=== PATIENT | female | born 1985 | race Caucasian/White ===

== ENCOUNTER 2022-05-08 05:28 | Observation (INO) ==
[2022-05-08] MEDS ORDERED: MoRPHine SULFATE 4 MG/ML 1 ML CARP\\VIAL IV PRN (06:02)
[2022-05-08] MEDS ORDERED: ONDANSETRON INJ 2 MG/ML 2 ML VIAL IV STA (06:02)
[2022-05-08] MEDS ORDERED: SODIUM CHLORIDE 0.9% 1000ML 1,000 ML IV SCH (06:15)
--- NOTE | 2022-05-08 06:29 | Emergency Department Note ---
History of Present Illness General Chief complaint: Back Injury/Pain Stated complaint: BACK AND STOMACH PAIN Time Seen by Provider: 05/08/22 05:51 History of Present Illness Maximum Pain Intensity: 8 This is a 37-year-old female presenting to the emergency department for evaluation of vague back and stomach pain off and on for the past few months. The patient states that her pain is often worse at night and will occasionally wake her from sleep. She is not able to identify aggravating or alleviating factors. The patient typically starts in her right side and will moved to her right side abdomen. She has not had fevers or chills. She is unsure if food improves or worsens the symptoms. She does not have a history of abdominal surgery. No fevers or chills. She denies chance of . She rates her discomfort tonight and 8/10, but it is somewhat improving as she sits here in the ER. She may have slightly injured her back few months ago, but this does not feel the same as that. She is not having any vaginal drainage, discharge, or bleeding. Home Medications Medication Instructions Recorded Confirmed Type Control Pills 1 tab PO DAILY #0 tab 03/02/16 History METFORMIN HCL (GLUCOPHAGE) 500 mg PO DAILY #0 tab 03/02/16 History Allergies Allergy/AdvReac Type Severity Reaction Status Date / Time No Known Allergies Allergy Unverified 03/02/16 10:45 Past Med/Surg History Medical History No chronic diseases present Surgical History No significant past surgical history Social History Smoking Status: Never smoker Preferred Language: Sinhala Feels Safe at Home: Yes Review of Systems A total of 10 systems reviewed and were otherwise negative Physical Exam Vital Signs Vital Signs - 24 hr 05/08/22 05:45 05/08/22 06:04 Temperature 36.8 C 36.8 C Temperature Source Temporal Artery Scan Oral Pulse Rate 72 Pulse Rate [Apical] 76 Pulse Rhythm [Apical] Regular Pulse Strength [Apical] Normal Respiratory Rate 20 18 Respiratory Effort / Characteristics Non-Labored Spontaneous Respiratory Depth Normal Respiratory Pattern Regular Blood Pressure 135/83 Blood Pressure [Right Arm] 147/89 H Blood Pressure Mean 100 Blood Pressure Mean [Right Arm] 108 Blood Pressure Position Sitting Blood Pressure Position [Right Arm] Lying Pulse Oximetry 99 99 Oxygen Delivery Method Room Air Room Air Sepsis Recent Fever Within 48 Hours No Sepsis New/Unexplained Change in Mental Status N/A Sepsis Action Taken by Nursing No Action Required VITALS: Vitals are noted on the nurse's note and reviewed by myself. Vital signs stable. GENERAL: Well-developed, well-nourished, white female, who is in no acute distress and resting comfortably. Patient is cooperative with the examination. HEAD: Normocephalic atraumatic. MOUTH: Mucous membranes moist. Tonsils are not enlarged. Pharynx without erythema, blood, or exudate. Uvula midline. Airway patent. NECK: Supple without nuchal rigidity. No lymphadenopathy. No thyromegaly. Cervical spine is nontender. HEART: Regular rate and rhythm without murmurs gallops or rubs. LUNGS: Clear to auscultation bilaterally without wheezes, rales or rhonchi. No retractions or accessory muscle use. BACK: No significant thoracic or lumbar tenderness. No rash. No CVA tenderness. ABDOMEN: Positive normal bowel sounds x 4. Soft, nontender, without masses or organomegaly. No guarding or rebound tenderness. MUSCULOSKELETAL: No muscle atrophy, erythema, or edema noted. Full range of motion in all extremities. Course Administered Medications Sodium Chloride (Nss 1000ml) 1,000 mls @ 999 mls/hr IV .Q1H1M CYNDI Stop: 05/08/22 07:15 Last Admin: 05/08/22 06:29 Dose: 999 mls/hr Documented by: [id number] Discontinued Medications Ondansetron HCl (Ondansetron Inj 2 Mg/Ml 2 Ml Vial) 4 mg IV NOW STA Stop: 05/08/22 06:03 Last Admin: 05/08/22 06:29 Dose: 4 mg Documented by: [id number] Medical Decision Making Differential Diagnosis Differential diagnosis: Etiologies such as biliary colic, cholecystitis, hepatitis, pancreatitis, cardiac disease, pancreatitis, gastritis, peptic ulcer disease, appendicitis, cystitis, diverticulitis, mesenteric ischemia, inflammatory bowel disease, ileus, bowel obstruction, testicular/adnexal torsion, aortic pathology, shingles, as well as others were considered Laboratory Data Result diagrams: 05/08/22 06:15 05/08/22 06:15 Lab Results 05/08/22 05/08/22 05/08/22 Range/Units 06:15 06:15 06:28 WBC 11.41 H (4.8-10.8) K/uL RBC 4.91 (4.2-5.4) M/uL Hgb 13.7 (12.0-16.0) g/dL Hct 40.8 (37-47) % MCV 83.1 (80-100) fL MCH 27.9 (25-34) pg MCHC 33.6 (32-36) g/dL RDW Std Deviation 41.2 (36.4-46.3) fL RDW Coeff of Hina 13.6 (11.5-14.5) % Plt Count 356 (130-400) K/uL MPV 9.6 (7.4-10.4) fL Immature Gran % (Auto) 0.6 % Neut % (Auto) 76.1 % Lymph % (Auto) 15.7 % [place] % (Auto) 6.4 % Eos % (Auto) 1.0 % Baso % (Auto) 0.2 % Neut # (Auto) 8.69 H (1.4-6.5) K/uL Lymph # (Auto) 1.79 (1.2-3.4) K/uL [place] # (Auto) 0.73 H (0.11-0.59) K/uL Eos # (Auto) 0.11 (0-0.5) K/uL Baso # (Auto) 0.02 (0-0.2) K/uL Immature Gran # (Auto) 0.07 H (0.00-0.02) K/uL Sodium 137 (136-145) mmol/L Potassium 4.0 (3.5-5.1) mmol/L Chloride 101 (98-107) mmol/L Carbon Dioxide 26 (21-32) mmol/L Anion Gap 10 (3-11) BUN 19 (6-23) mg/dl Creatinine 0.79 (0.6-1.2) mg/dl Est Cr Clr Drug Dosing 128.4 ml/min Est GFR ( Amer) 109.3 ml/min Est GFR (Non-Af Amer) 94.3 ml/min BUN/Creatinine Ratio 24.1 H (10-20) Glucose 132 H (70-99(Fasting)) mg/dl Calcium 9.2 (8.5-10.1) mg/dl POC Ur Test NEG (NEG) MDM Narrative Physical exam and history were performed. Nursing notes, EMR, and Medication List were personally reviewed. Patient appears to have had intermittent and colicky abdominal and back pain for the past few months. It is worsening in frequency and severity the past week and tonight it was enough to bring her to the ER. On examination the patient does not appear toxic. IV access was established and labs were obtained. She was hydrated with normal saline and given IV morphine and Zofran for comfort. Patient was prepped for CT scan with IV and oral contrast. She was sent to ultrasound for evaluation of the right upper quadrant. Patient remained in stable condition until the time of shift change. The case was discussed with my colleague, Lauren Eugene PA-C, who will assume care at this time. Please see Ms. Eugene's dictation for further patient course, plan, and disposition. The chart was completed utilizing [employer] Speech Voice Recognition Software. Grammatical errors, random word insertions, pronoun errors, and incomplete sentences are an occasional consequence of this system due to software limitations, ambient noise, and hardware issues. Any formal questions or concerns about the content, text, or information contained within the body of this dictation should be directly addressed to the provider for clarification. . Impression & Plan Right sided abdominal pain, Right-sided back pain Discharge Plan Visit Data Chief Complaint: Back Injury/Pain Stated Complaint: BACK AND STOMACH PAIN ED Provider: Abilio Borja ED Midlevel Provider: Jake Kincaid Discharge Problem: Right sided abdominal pain, Right-sided back pain Forms Stand Alone Forms: [facility] [employer] Prescriptions Prescriptions: No Action Control Pills tablet 1 tab PO DAILY Qty: 0 RF: 0 METFORMIN HCL (GLUCOPHAGE) 500 MG tablet 500 mg PO DAILY Qty: 0 RF: 0 Referrals Referrals: Allen Decker MD [Primary Care Provider] -
[2022-05-08 06:35] LABS: Basophils # (auto) 0.02 K/uL (0-0.2); Basophils % (auto) 0.2 %; Eosinophils # (auto) 0.11 K/uL (0-0.5); Hematocrit (blood only) 40.8 % (37-47); Hemoglobin 13.7 g/dL (12.0-16.0); Immature Granulocytes # (auto) 0.07 K/uL (0.00-0.02); Immature Granulocytes % (auto) 0.6 %; Lymphocytes # (auto) 1.79 K/uL (1.2-3.4); Lymphocytes % (auto) 15.7 %; Mean Corpuscular Hemoglobin 27.9 pg (25-34); Mean Corpuscular Hgb Conc 33.6 g/dL (32-36); Mean Corpuscular Volume 83.1 fL (80-100); Mean Platelet Volume 9.6 fL (7.4-10.4); Monocytes # (auto) 0.73 K/uL (0.11-0.59); Monocytes % (auto) 6.4 %; Neutrophils # (auto) 8.69 K/uL (1.4-6.5); Neutrophils % (auto) 76.1 %; Platelet Count 356 K/uL (130-400); RDW Coefficient of Variation 13.6 % (11.5-14.5); RDW Standard Deviation 41.2 fL (36.4-46.3); Red Blood Count 4.91 M/uL (4.2-5.4); White Blood Count 11.41 K/uL (4.8-10.8)
[2022-05-08 06:51] LABS: BUN Creatinine Ratio 24.1 (10-20); Calcium 9.2 mg/dl (8.5-10.1); Creatinine Clr Calc Pharmacy 128.4 ml/min; Est GFR (African American) 109.3 ml/min; Est GFR (Non-African American) 94.3 ml/min
--- NOTE | 2022-05-08 07:27 | Ultrasound Report ---
US gallbladder HISTORY: 37 years-old Female Right side abd pain acute right upper quadrant abdominal pain with naus ea COMPARISON: None TECHNIQUE: Multiple real-time sonographic images of the abdominal right upper quadrant were obtained assessing grayscale appearance and color flow FINDINGS: The visualized pancreas is unremarkable. The liver measures 18.9 cm in length. No hepatic mass identi fied. The intrahepatic biliary tree within the right hepatic lobe is slightly prominent. The common b ile duct measures within the upper limits of normal at 6 mm. No choledocholithiasis identified. Diste nded gallbladder. The gallbladder wall measures the upper limits of normal at 3 mm. Layering cholelit hiasis and gallbladder sludge. There is questioned trace pericholecystic fluid. Sonographic Hale si gn was unable to be assessed secondary to patient recently receiving pain medication. The imaged right kidney is unremarkable. IMPRESSION: 1. Distended gallbladder with cholelithiasis and trace pericholecystic fluid. The gallbladder wall me asures within the upper limits of normal. Findings are suspicious for acute cholecystitis. 2. The common bile duct measures within the upper limits of normal at 6 mm. Correlation with serum bi lirubin recommended to exclude obstructive process. ACT 112: Negative or not required by law. The above report was generated using voice recognition software. It may contain grammatical, syntax o r spelling errors. Electronically signed by: Renzo Jansen M.D. 05/08/2022 7:25 AM
[2022-05-08 07:32] LABS: Albumin Globulin Ratio 1.1 (0.9-2); Albumin Level 4.1 gm/dl (3.4-5.0); Bilirubin,Total 1.1 mg/dl (0.2-1.0); Globulin 3.7 gm/dl (2.5-4.0); Total Protein 7.8 gm/dl (6.0-8.3)
[2022-05-08 07:33] LABS: Appearance Urine Turbid (Clear); Bacteria Urine Automated 1+ (Negative); Blood Urine Negative (Negative); Color Urine Dark Yellow; Epithelial Cell Urine Auto >30 /lpf (0-5); Glucose Urine UA Negative (Negative); Ketones Urine Trace (Negative); Leukocyte Esterase Urine Negative (Negative); Nitrite Urine Negative (Negative); Protein Urine Negative (Negative); Specific Gravity Urine 1.024 (1.000-1.030); Urobilinogen Urine Positive (Negative); pH Urine 6.5 (4.5-7.5)
[2022-05-08 07:38] LABS: Bilirubin Urine 1+ (Negative)
[2022-05-08 07:54] LABS: Cast Urine Automated 0 /lpf (0-5)
[2022-05-08 07:59] LABS: RBC Urine Automated 0-4 /hpf (0-4)
[2022-05-08] MEDS ORDERED: SODIUM CHLORIDE 0.9% 1000ML 1,000 ML IV ONE (08:30)
[2022-05-08] MEDS ORDERED: PIPERACILLIN/TAZOBACTAM 3.375 GM in DEXTROSE 5% 100 ML/100 ML BAG IV STA (08:32)
--- NOTE | 2022-05-08 08:53 | History & Physical Report ---
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 VSS, WBC of 11.4K, total bilirubin of 1.1, AST of 89, ALT of 94, alkaline phosphatase of 140, lipase of 2492 Gallbladder ultrasound notable for distended gallbladder with cholelithiasis with trace pericholecystic fluid CBD limits of normal at 6 mm Pancreatitis likely 2/2 gall stones Given cefepime in ED. Continuing empiric abx with cipro and flagyl Discussed with general surgery and GI, who will evaluate patient Keep NPO, LR @ 200 ml/hr, analgesics PRN (2) Diabetes mellitus, type II: Plan: Hold metformin SSI while in-patient BSG Q6H while NPO (3) Mood disorder: Plan: Continue Zoloft DVT Ppx: SCDs Code status: FULL PCP: Jeronimo ? Dispo: Observation med/surg Patient seen in collaboration with Dr. Espinoza. Please see addendum. 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 Patient first noted this type of pain back in February but it would resolve spontaneously. Describes as an aching intermittent pain in lower back with radiation to abdomen, R>L. Has pain intermittently and noted again last weekend when it lasted for 2 days, resolved and then returned early this morning. Exacerbated by movement. Patient is now comfortable at rest, 0/10 pain. Associated with some nausea. Denies fever, chills, cough, dizziness, congestion, chest pain, SOB, dysuria, diarrhea or constipation. History of gallstones in family. Patient denies any previous abdominal surgeries. Does not drink alcohol or smoke cigarettes. Does take metformin for DM II. Allergies Allergy/AdvReac Type Severity Reaction Status Date / Time No Known Allergies Allergy Unverified 03/02/16 10:45 Home Medications Medication Instructions Recorded Confirmed Type metformin 1,000 mg tablet 1,000 mg PO BID 05/08/22 05/08/22 History norethindrone acetate 1.5 1 tab PO DAILY 05/08/22 05/08/22 History mg-ethinyl estradiol 30 mcg tablet (Junel) sertraline 50 mg tablet 50 mg PO DAILY 05/08/22 05/08/22 History Past Med/Surg History Medical History (Updated 05/08/22 @ 10:53 by Faby Young PA-C) Diabetes mellitus, type II Mood disorder PCOS (polycystic ovarian syndrome) Surgical History (Updated 05/08/22 @ 09:39 by Annette Twonsend PA-C) H/O sinus surgery Family History Other Diabetes Gall stones Social History (Updated 05/08/22 @ 08:52 by Annette Townsend PA-C) Smoking Status: Never smoker Hx Alcohol Use: No Hx Substance Use: No Preferred Language: Kinyarwanda Communication Ability: Effective [employer] T[employer] Required: No Beliefs That Will Affect Care: None Current Living Situation: Spouse and Family Feels Safe at Home: Yes Safety Concerns: Feels Safe At This Time Assistive Devices: None Review of Systems Review of Systems: At least ten systems reviewed and negative except as noted in the HPI. Physical Exam Physical Exam: Please see Dr. Espinoza's addendum for physical exam. Results & Data Results & Data ([facility]) Vital Signs (Past 12 Hours) Vital Signs Temp Pulse Pulse Resp BP BP Pulse Ox 05/08/22 07:59 85 16 122/77 99 05/08/22 06:04 36.8 C 76 18 147/89 H 99 05/08/22 05:45 36.8 C 72 20 135/83 99 Laboratory Results Short CBC 05/08/22 Range/Units 06:15 WBC 11.41 H (4.8-10.8) K/uL Hgb 13.7 (12.0-16.0) g/dL Hct 40.8 (37-47) % Plt Count 356 (130-400) K/uL BMP 05/08/22 06:15 Sodium 137 Potassium 4.0 Chloride 101 Carbon Dioxide 26 BUN 19 Creatinine 0.79 Glucose 132 H Calcium 9.2 Liver Function 05/08/22 Range/Units 06:15 Total Bilirubin 1.1 H (0.2-1.0) mg/dl AST 89 H (13-39) U/L ALT 94 H (7-52) U/L Alkaline Phosphatase 140 H (34-104) U/L Albumin 4.1 (3.4-5.0) gm/dl Urine 05/08/22 Range/Units 06:15 Urine Color Dark Yellow Urine Appearance Turbid A (Clear) Urine pH 6.5 (4.5-7.5) Ur Specific [place] 1.024 (1.000-1.030) Urine Protein Negative (Negative) Urine Glucose (UA) Negative (Negative) Diagnostic Findings Gallbladder Ultrasound 05/08/22 06:02 US gallbladder HISTORY: 37 years-old Female Right side abd pain acute right upper quadrant abdominal pain with nausea COMPARISON: None TECHNIQUE: Multiple real-time sonographic images of the abdominal right upper quadrant were obtained assessing grayscale appearance and color flow FINDINGS: The visualized pancreas is unremarkable. The liver measures 18.9 cm in length. No hepatic mass identified. The intrahepatic biliary tree within the right hepatic lobe is slightly prominent. The common bile duct measures within the upper limits of normal at 6 mm. No choledocholithiasis identified. Distended gallbladder. The gallbladder wall measures the upper limits of normal at 3 mm. Layering cholelithiasis and gallbladder sludge. There is questioned trace pericholecystic fluid. Sonographic Hale sign was unable to be assessed secondary to patient recently receiving pain medication. The imaged right kidney is unremarkable. IMPRESSION: 1. Distended gallbladder with cholelithiasis and trace pericholecystic fluid. The gallbladder wall measures within the upper limits of normal. Findings are suspicious for acute cholecystitis. 2. The common bile duct measures within the upper limits of normal at 6 mm. Correlation with serum bilirubin recommended to exclude obstructive process. ACT 112: Negative or not required by law. The above report was generated using voice recognition software. It may contain grammatical, syntax or spelling errors. Electronically signed by: Renzo Jansen M.D. 05/08/2022 7:25 AM Supervising Physician Co-Signing Physician Notes History and physical exam performed by me. History notable for 37-year-old woman with history of PCOS, DM type II who presents with abdominal pain. Patient reported that the first episode was around March 07 described as back pain, aching in nature, radiating to the front and on abdomen. Recent episode started on Wednesday simmering characteristics, severe, associated with right-sided abdominal pain and later generalized abdominal pain as well as nausea. Denied fevers, chills. Reports pain resolved on presentation to ER. Denied any symptoms at this time Denied alcohol use. Reports family hx of DM and gall bladder problems in sibling. On physical exam, General: Obese, no acute distress and not ill appearing Eyes: PERRL, conjunctivae normal, not pale, anicteric sclerae, EOM intact bilaterally ENMT: External ear and nose normal, oropharynx normal Respiratory: Normal respiratory effort, no respiratory distress, lungs clear to auscultation, no crackles and no wheezes Cardiovascular: RRR S1 S2 Gastrointestinal (Abdomen): Abdomen is not distended, soft, non-tender to palpation, no guarding, no palpable hepatosplenomegaly, normal bowel sounds Musculoskeletal: No cyanosis or clubbing, No pedal edema Genitourinary: No CVA tenderness Neurologic: Alert and oriented x 3, No focal weakness, sensation grossly intact Psychiatric: Alert and oriented x 3, euthymic affect, no depressed affect Labs notable for WBC of 11 point 4K, total bilirubin of 1.1, AST of 89, ALT of 94, alkaline phosphatase of 140, lipase of 2492 Gallbladder ultrasound notable for distended gallbladder with cholelithiasis wit h trace pericholecystic fluid, possible cholecystitis. CBD limits of normal at 6 mm. Acute pancreatitis Likely due to gallbladder stones. Possible cholecystitis on USS Patient is currently asymptomatic IVF NSS IV cipro + flagyl Keep NPO for now for GI evaluation Patient may benefit from surg eval for possible cholecytectomy. Hold home metformin Monitor BG, ISS Agree with other plans as detailed by Annette Townsend PA-C
--- NOTE | 2022-05-08 09:05 | Emergency Department Note ---
ED Visit Note Care of this patient was signed out to me at change of shift by MERLENE Hwang. At that time, patient was waiting right upper quadrant ultrasound and CT scan. Ultrasound was performed and resulted, showing evidence of acute cholecystitis with possible common bile duct dilatation. Patient's LFTs found to be elevated with AST 89, ALT 94, alkaline phosphatase 140 and T bili 1.1. Lipase was elevated at 2492. Patient does have a slight leukocytosis of 11.41. Work-up is consistent with gallstone pancreatitis. Patient was given a dose of Zosyn. I did consult general surgery, recommended medical admission and will consult on the patient. Case discussed with Annette Townsend PA-C with the [facility] service, who agreed to evaluate the patient for further care. US gallbladder HISTORY: 37 years-old Female Right side abd pain acute right upper quadrant abdominal pain with nausea COMPARISON: None TECHNIQUE: Multiple real-time sonographic images of the abdominal right upper quadrant were obtained assessing grayscale appearance and color flow FINDINGS: The visualized pancreas is unremarkable. The liver measures 18.9 cm in length. No hepatic mass identified. The intrahepatic biliary tree within the right hepatic lobe is slightly prominent. The common bile duct measures within the upper limits of normal at 6 mm. No choledocholithiasis identified. Distended gallbladder. The gallbladder wall measures the upper limits of normal at 3 mm. Layering cholelithiasis and gallbladder sludge. There is questioned trace pericholecystic fluid. Sonographic Hale sign was unable to be assessed secondary to patient recently receiving pain medication. The imaged right kidney is unremarkable. IMPRESSION: 1. Distended gallbladder with cholelithi asis and trace pericholecystic fluid. The gallbladder wall measures within the upper limits of normal. Findings are suspicious for acute cholecystitis. 2. The common bile duct measures within the upper limits of normal at 6 mm. Correlation with serum bilirubin recommended to exclude obstructive process. .
--- NOTE | 2022-05-08 09:12 | Communication Note ---
Date of Service: May 08, 2022 History and physical exam performed by me. History notable for 37-year-old woman with history of PCOS, DM type II who presents with abdominal pain. Patient reported that the first episode was around March 07 described as back pain, aching in nature, radiating to the front and on abdomen. Recent episode started on Wednesday simmering characteristics, severe, associated with right-sided abdominal pain and later generalized abdominal pain as well as nausea. Denied fevers, chills. Reports pain resolved on presentation to ER. Denied any symptoms at this time Denied alcohol use. Reports family hx of DM and gall bladder problems in sibling. On physical exam, General: Obese, no acute distress and not ill appearing Eyes: PERRL, conjunctivae normal, not pale, anicteric sclerae, EOM intact bilaterally ENMT: External ear and nose normal, oropharynx normal Respiratory: Normal respiratory effort, no respiratory distress, lungs clear to auscultation, no crackles and no wheezes Cardiovascular: RRR S1 S2 Gastrointestinal (Abdomen): Abdomen is not distended, soft, non-tender to palpation, no guarding, no palpable hepatosplenomegaly, normal bowel sounds Musculoskeletal: No cyanosis or clubbing, No pedal edema Genitourinary: No CVA tenderness Neurologic: Alert and oriented x 3, No focal weakness, sensation grossly intact Psychiatric: Alert and oriented x 3, euthymic affect, no depressed affect Labs notable for WBC of 11 point 4K, total bilirubin of 1.1, AST of 89, ALT of 94, alkaline phosphatase of 140, lipase of 2492 Gallbladder ultrasound notable for distended gallbladder with cholelithiasis with trace pericholecystic fluid, possible cholecystitis. CBD limits of normal at 6 mm. Acute pancreatitis Likely due to gallbladder stones. Possible cholecystitis on USS Patient is currently asymptomatic IVF NSS IV cipro + flagyl Keep NPO for now for GI evaluation Patient may benefit from surg eval for possible cholecytectomy. Hold home metformin Monitor BG, ISS Agree with other plans as detailed by Annette Townsend PA-C
--- NOTE | 2022-05-08 10:55 | Surgery Consultation ---
Date of Consultation May 08, 2022 Assessment & Plan (1) Cholelithiasis with cholecystitis: (2) Pancreatitis: 37 year-old female with 2 month history of intermittent RUQ abdominal pain and right sided back pain who presented to ED with worsening RUQ abdominal pain and back pain with associated nausea. Labs showed elevated t. bili at 1.1, elevated LFTS and alk phose and lipase at 2492. Ultrasound showing distended gallbladder with gallstones and sludge with mild pericholecystic fluid con cerning for possible acute cholecystitis. CBD slight dilated at 6 mm. No discrete choledocholithiasis seen on US. Plan: Gi recommending MRCP to further evaluate for any biliary obstruction Briefly reviewed with patient in setting of biliary obstruction due to gallstones and pancreatitis recommendation is for cholecystectomy to prevent further biliary obstruction. Usually this is done during same admission however could potentially have close outpatient follow-up pending MRCP results Given that her lipase is elevated, would like to see labs trending to normal prior to laparoscopic cholecystectomy Will await MRCP results Keep npo for now IV Abx for possible acute cholecystitis on imaging repeat labs in am (cbc, cmp, and lipase) Discussed with Dr. Mims who agrees with above. See addendum for further recommendations/plan. Supervising Physician Co-Signing Physician Notes I have seen and examined the patient and agree with the above assessment and plan. MRCP was negative. She would not like to have surgery while she is here. We will set her up for outpatient follow-up to have laparoscopic cholecystec vincenzo in the next 2 to 3 weeks. We will sign off for now. Please call with questions or concerns. History of Present Illness Reason for Consultation: gallstone pancreatitis elevated LFTs acute cholecystitis Requesting Physician: Annette Townsend PA-C Attending Physician: Dr. James History of Present Illness Jaky is a 37 year-old female with history of PCOS and diabetes mellitus type 2 who presented to ED today with complaint of increasing Right upper back pain and RUQ abdominal pain with associated nausea since this morning. This is in the setting of intermittent right back pain and right sided abdominal pain for about 2 months. States the pain would come and go. No specific relation to food. Has been on a diet/meal plan since November and has lot 53 pounds. Denies of any fever, chills, severe nausea, vomiting, changes in bowel habits. No prior abdominals surgeries. No blood thinning agents. Allergies Allergy/AdvReac Type Severity Reaction Status Date / Time No Known Allergies Allergy Unverified 03/02/16 10:45 Home Medications Medication Instructions Recorded Confirmed Type metformin 1,000 mg tablet 1,000 mg PO BID 05/08/22 05/08/22 History norethindrone acetate 1.5 1 tab PO DAILY 05/08/22 05/08/22 History mg-ethinyl estradiol 30 mcg tablet (Junel) sertraline 50 mg tablet 50 mg PO DAILY 05/08/22 05/08/22 History Patient History Medical History (Updated 05/08/22 @ 10:53 by Faby Young PA-C) Diabetes mellitus, type II Mood disorder PCOS (polycystic ovarian syndrome) Surgical History (Updated 05/08/22 @ 09:39 by Annette Townsend PA-C) H/O sinus surgery Family History Other Diabetes Gall stones Social History (Updated 05/08/22 @ 08:52 by Annette Townsend PA-C) Smoking Status: Never smoker Hx Alcohol Use: No Hx Substance Use: No Preferred Language: [place] Communication Ability: Effective Pocket Maker Required: No Beliefs That Will Affect Care: None Current Living Situation: Spouse and Family Feels Safe at Home: Yes Safety Concerns: Feels Safe At This Time Assistive Devices: None Results & Data ([facility]) Vital Signs (Past 12 Hours) Vital Signs Temp Pulse Pulse Resp BP BP Pulse Ox 05/08/22 07:59 85 16 122/77 99 05/08/22 06:04 36.8 C 76 18 147/89 H 99 05/08/22 05:45 36.8 C 72 20 135/83 99 Laboratory Results 05/08/22 05/08/22 05/08/22 Range/Units 10:40 07:50 06:28 WBC (4.8-10.8) K/uL RBC (4.2-5.4) M/uL Hgb (12.0-16.0) g/dL Hct (37-47) % MCV (80-100) fL MCH (25-34) pg MCHC (32-36) g/dL RDW Std Deviation (36.4-46.3) fL RDW Coeff of Hian (11.5-14.5) % Plt Count (130-400) K/uL MPV (7.4-10.4) fL Immature Gran % (Auto) % Neut % (Auto) % Lymph % (Auto) % [place] % (Auto) % Eos % (Auto) % Baso % (Auto) % Neut # (Auto) (1.4-6.5) K/uL Lymph # (Auto) (1.2-3.4) K/uL [place] # (Auto) (0.11-0.59) K/uL Eos # (Auto) (0-0.5) K/uL Baso # (Auto) (0-0.2) K/uL Immature Gran # (Auto) (0.00-0.02) K/uL PT Pending INR Pending Sodium (136-145) mmol/L Potassium (3.5-5.1) mmol/L Chloride (98-107) mmol/L Carbon Dioxide (21-32) mmol/L Anion Gap (3-11) BUN (6-23) mg/dl Creatinine (0.6-1.2) mg/dl Est Cr Clr Drug Dosing ml/min Est GFR ( Amer) ml/min Est GFR (Non-Af Amer) ml/min BUN/Creatinine Ratio (10-20) Glucose (70-99(Fasting)) mg/dl Calcium (8.5-10.1) mg/dl Total Bilirubin (0.2-1.0) mg/dl AST (13-39) U/L ALT (7-52) U/L Alkaline Phosphatase (34-104) U/L Total Protein (6.0-8.3) gm/dl Albumin (3.4-5.0) gm/dl Globulin (2.5-4.0) gm/dl Albumin/Globulin Ratio (0.9-2) Lipase (11-82) U/L Urine Color Urine Appearance (Clear) Urine pH (4.5-7.5) Ur Specific [place] (1.000-1.030) Urine Protein (Negative) Urine Glucose (UA) (Negative) Urine Ketones (Negative) Urine Blood (Negative) Urine Nitrite (Negative) Urine Bilirubin (Negative) Urine Urobilinogen (Negative) Ur Leukocyte Esterase (Negative) Urine WBC (Auto) (0-5) /hpf Urine RBC (Auto) (0-4) /hpf U Hyaline Cast (Auto) (0-5) /lpf U Epithel Cells (Auto) (0-5) /lpf Urine Bacteria (Auto) (Negative) POC Ur Test NEG (NEG) SARS-CoV-2, RNA, NAAT NEGATIVE (NEGATIVE) 05/08/22 05/08/22 05/08/22 Range/Units 06:15 06:15 06:15 WBC 11.41 H (4.8-10.8) K/uL RBC 4.91 (4.2-5.4) M/uL Hgb 13.7 (12.0-16.0) g/dL Hct 40.8 (37-47) % MCV 83.1 (80-100) fL MCH 27.9 (25-34) pg MCHC 33.6 (32-36) g/dL RDW Std Deviation 41.2 (36.4-46.3) fL RDW Coeff of Hina 13.6 (11.5-14.5) % Plt Count 356 (130-400) K/uL MPV 9.6 (7.4-10.4) fL Immature Gran % (Auto) 0.6 % Neut % (Auto) 76.1 % Lymph % (Auto) 15.7 % [place] % (Auto) 6.4 % Eos % (Auto) 1.0 % Baso % (Auto) 0.2 % Neut # (Auto) 8.69 H (1.4-6.5) K/uL Lymph # (Auto) 1.79 (1.2-3.4) K/uL [place] # (Auto) 0.73 H (0.11-0.59) K/uL Eos # (Auto) 0.11 (0-0.5) K/uL Baso # (Auto) 0.02 (0-0.2) K/uL Immature Gran # (Auto) 0.07 H (0.00-0.02) K/uL PT INR Sodium 137 (136-145) mmol/L Potassium 4.0 (3.5-5.1) mmol/L Chloride 101 (98-107) mmol/L Carbon Dioxide 26 (21-32) mmol/L Anion Gap 10 (3-11) BUN 19 (6-23) mg/dl Creatinine 0.79 (0.6-1.2) mg/dl Est Cr Clr Drug Dosing 128.4 ml/min Est GFR ( Amer) 109.3 ml/min Est GFR (Non-Af Amer) 94.3 ml/min BUN/Creatinine Ratio 24.1 H (10-20) Glucose 132 H (70-99(Fasting)) mg/dl Calcium 9.2 (8.5-10.1) mg/dl Total Bilirubin 1.1 H (0.2-1.0) mg/dl AST 89 H (13-39) U/L ALT 94 H (7-52) U/L Alkaline Phosphatase 140 H (34-104) U/L Total Protein 7.8 (6.0-8.3) gm/dl Albumin 4.1 (3.4-5.0) gm/dl Globulin 3.7 (2.5-4.0) gm/dl Albumin/Globulin Ratio 1.1 (0.9-2) Lipase 2492 H (11-82) U/L Urine Color Dark Yellow Urine Appearance Turbid A (Clear) Urine pH 6.5 (4.5-7.5) Ur Specific [place] 1.024 (1.000-1.030) Urine Protein Negative (Negative) Urine Glucose (UA) Negative (Negative) Urine Ketones Trace H (Negative) Urine Blood Negative (Negative) Urine Nitrite Negative (Negative) Urine Bilirubin 1+ H (Negative) Urine Urobilinogen Positive H (Negative) Ur Leukocyte Esterase Negative (Negative) Urine WBC (Auto) 1-5 (0-5) /hpf Urine RBC (Auto) 0-4 (0-4) /hpf U Hyaline Cast (Auto) 0 (0-5) /lpf U Epithel Cells (Auto) >30 H (0-5) /lpf Urine Bacteria (Auto) 1+ H (Negative) POC Ur Test (NEG) SARS-CoV-2, RNA, NAAT (NEGATIVE) Diagnostic Findings US gallbladder HISTORY: 37 years-old Female Right side abd pain acute right upper quadrant abdominal pain with nausea COMPARISON: None TECHNIQUE: Multiple real-time sonographic images of the abdominal right upper qu adrant were obtained assessing grayscale appearance and color flow FINDINGS: The visualized pancreas is unremarkable. The liver measures 18.9 cm in length. No hepatic mass identified. The intrahepatic biliary tree within the right hepatic lobe is slightly prominent. The common bile duct measures within the upper limits of normal at 6 mm. No choledocholithiasis identified. Distended gallbladder. The gallbladder wall measures the upper limits of normal at 3 mm. Layering cholelithiasis and gallbladder sludge. There is questioned trace pericholecystic fluid. Sonographic Hale sign was unable to be assessed secondary to patient recently receiving pain medication. The imaged right kidney is unremarkable. IMPRESSION: 1. Distended gallbladder with cholelithiasis and trace pericholecystic fluid. The gallbladder wall measures within the upper limits of normal. Findings are suspicious for acute cholecystitis. 2. The common bile duct measures within the upper limits of normal at 6 mm. Correlation with serum bilirubin recommended to exclude obstructive process.
[2022-05-08] MEDS ORDERED: CARBOHYDRATES FOR HYPOGLYCEMIA PO PRN (11:20)
[2022-05-08] MEDS ORDERED: MoRPHine SULFATE 2 MG/ML CARP IV PRN (11:20)
[2022-05-08] MEDS ORDERED: DEXTROSE 50% 50 ML SYRINGE IV PRN (11:20)
[2022-05-08] MEDS ORDERED: PROMETHAZINE HCL 12.5 MG in SODIUM CHLORIDE 0.9% 50 ML IV PRN (11:20)
[2022-05-08] MEDS ORDERED: GLUCOSE 40% GEL 15 GM TUBE PO PRN (11:20)
[2022-05-08] MEDS ORDERED: GLUCAGON FOR INJ 1 MG VIAL SQ PRN (11:20)
[2022-05-08] MEDS ORDERED: GLUCOSE 10 TABS/TUBE PO PRN (11:20)
[2022-05-08 11:37] LABS: Prothrombin Time 10.3 Seconds (9.0-12.0)
[2022-05-08] MEDS: CIPROFLOXACIN / D5W 400 MG/200 ML BAG IV SCH (12:13)
[2022-05-08] MEDS: LACTATED RINGER'S 1,000 ML IV SCH ×2 (12:13→19:58)
--- NOTE | 2022-05-08 13:33 | Magnetic Resonance Report ---
MR MRCP CLINICAL HISTORY: gallstone panc, please assess for CBD stone TECHNIQUE: Multiplanar multisequence MR images of the abdomen were obtained, as per MRCP protocol. . COMPARISON: None available at the time of this dictation. FINDINGS: Lower chest: No acute abnormality Liver: Unremarkable. No focal lesions are seen. Gallbladder and biliary tree: Mild pericholecystic edema is noted. Gallbladder wall appears minimally thickened. Common bile duct measures 5 mm in diameter, not enlarged. No filling defects are noted. Pancreas: Unremarkable, no focal lesions. Spleen: Unremarkable. Adrenals: Unremarkable. Kidneys and ureters: Unremarkable. Bowel: Unremarkable. Lymph nodes Retroperitoneal: Unremarkable. Mesenteric: Unremarkable. Peritoneum: Normal Vessels: Unremarkable. Abdominal wall: Unremarkable. Bones: Unremarkable. IMPRESSION: 1. No evidence of stone in the common bile duct. No pancreatic edema is clearly seen. 2. Redemonstration of cholelithiasis and pericholecystic edema/minimal gallbladder wall thickening, concerning for acute cholecystitis. ACT 112: Negative or not required by law. Electronically signed by: Terrance Thurman M.D. 05/08/2022 1:30 PM
--- NOTE | 2022-05-08 13:56 | Gastrointestinal Consultation ---
Date of Consultation May 08, 2022 Assessment & Plan (1) Cholelithiasis with cholecystitis: (2) Pancreatitis: This is a 37 y/o female admitted w/ acute on chronic intermittent abd pain/back pain, imaging and labs suggestive of gallstone pancreatitis, possible acute cholecystitis. We have been asked to evaluate her for gallstone pancreatitis. Her LFTs are mildly though not significantly elevated. MRCP w/ CBD of 5 mm; no obvious stone, unremarkable pancreas, though suggested gallstones/findings concerning for acute cholecystis seen. Pain is currently resolved; abd soft, nontender. She's afebrile, has a mild leukocytosis. - No obvious CBD dilation, filling defects such as stones/sludge as per MRCP and minimally elevated LFTs. This suggests against choledocholithiasis/obstructive biliary pathology and will review with attending to confirm - Would consult surgery to evaluate for cholecystectomy - ABX as per primary team - IVF - NPO as per primary team - Analgesia PRN - Trend WBC, LFTs Thank you for allowing us to participate in the care of this patient. Please call with any acute changes, questions or concerns. Please see addendum below with additional recommendation from my supervising physician. Supervising Physician Co-Signing Physician Notes I performed a history and physical examination of the patient today, including specifically on physical exam - soft abdomen. I have discussed the patient's management with the advanced practitioner. Please refer to the nurse practitioner's note for the documented findings and plan of care. MRCP negative for choledocholithiasis, likely passed a stone. Monitor LFTs. Follow up with surgery for cholecystectomy. IV Hydration. Recall GI if needed. History of Present Illness Reason for Consultation: gallstone pancreatitis Requesting Physician: Annette Townsend PA-C Attending Physician: Lali Espinoza MD History of Present Illness This is a 37yo F with a PMH of DM II, mood disorder who presents with worsening pain in back and upper abd off and on x 2 months. Symptoms would resolve spontaneously, however they worsened early this AM abruptly and she came to the ED. Describes pain as aching and assoc w/ some nausea. On arrival labs showed elevated t. bili at 1.1, elevated LFTS and alk phos and lipase at 2492, WBC 11, HGB 13.7. US suggesting distended gallbladder with gallstones and sludge with mild pericholecystic fluid concerning for possible acute cholecystitis. CBD slight dilated at 6 mm. No discrete choledocholithiasis seen on US. Presentation concern for gallstone pancreati tis. Pt being evaluated by surgery for possible cholecystectomy. MRCP w/ CBD measuring 5 mm without filling defects suggestive of stone, though cholelithiasis and findings concerning for acute cholecystitis were seen. She was put on IVF, kept NPO and put on ABX. Currently states pain is resolved. Denies nausea, vomiting, hematemesis, melena, hematochezia, dark urine, koo stools, jaundice, fever, chills, CP, SOB. Bowels move well, regular, no diarrhea. No BM today, + passing flatus. She takes Metformin as OP, also sertraline. Was briefly on Ozempic but stopped it. A1C 6.4%. No ETOH, tobacco use. Allergies Allergy/AdvReac Type Severity Reaction Status Date / Time No Known Allergies Allergy Unverified 03/02/16 10:45 Home Medications Medication Instructions Recorded Confirmed Type metformin 1,000 mg tablet 1,000 mg PO BID 05/08/22 05/08/22 History norethindrone acetate 1.5 1 tab PO DAILY 05/08/22 05/08/22 History mg-ethinyl estradiol 30 mcg tablet (Junel) sertraline 50 mg tablet 50 mg PO DAILY 05/08/22 05/08/22 History Patient History Medical History (Updated 05/08/22 @ 10:53 by Faby Young PA-C) Diabetes mellitus, type II Mood disorder PCOS (polycystic ovarian syndrome) Surgical History (Updated 05/08/22 @ 09:39 by Annette Townsend PA-C) H/O sinus surgery Family History Other Diabetes Gall stones Social History (Updated 05/08/22 @ 08:52 by Annette Townsend PA-C) Smoking Status: Never smoker Hx Alcohol Use: No Hx Substance Use: No Preferred Language: Serbian Communication Ability: Effective Orchestra Teacher Required: No Beliefs That Will Affect Care: None Current Living Situation: Spouse and Family Feels Safe at Home: Yes Safety Concerns: Feels Safe At This Time Assistive Devices: None Review of Systems Review of Systems: All systems reviewed & are unremarkable except as noted in HPI & below Physical Exam Constitutional: WD/WN, vitals as above Eyes: PERRL, conjunctivae normal, anicteric sclerae ENMT: external ear and nose normal, oropharynx normal Respiratory: normal respiratory effort, lungs clear to auscultation Gastrointestinal (Abdomen): normal bowel sounds, soft, nontender, no hepatosplenomegaly Skin: no rashes, warm and dry Psychiatric: A+Ox3, euthymic affect Results & Data ([facility]) Vital Signs (Past 12 Hours) Vital Signs Temp Pulse Pulse Pulse Resp BP BP 05/08/22 13:31 37.7 C H 77 18 112/78 05/08/22 11:56 74 18 119/80 05/08/22 07:59 85 16 122/77 05/08/22 06:04 36.8 C 76 18 147/89 H 05/08/22 05:45 36.8 C 72 20 135/83 Pulse Ox 05/08/22 13:31 96 05/08/22 11:56 97 05/08/22 07:59 99 05/08/22 06:04 99 05/08/22 05:45 99 Laboratory Results 05/08/22 05/08/22 05/08/22 Range/Units 10:40 07:50 06:28 WBC (4.8-10.8) K/uL RBC (4.2-5.4) M/uL Hgb (12.0-16.0) g/dL Hct (37-47) % MCV (80-100) fL MCH (25-34) pg MCHC (32-36) g/dL RDW Std Deviation (36.4-46.3) fL RDW Coeff of Hina (11.5-14.5) % Plt Count (130-400) K/uL MPV (7.4-10.4) fL Immature Gran % (Auto) % Neut % (Auto) % Lymph % (Auto) % [place] % (Auto) % Eos % (Auto) % Baso % (Auto) % Neut # (Auto) (1.4-6.5) K/uL Lymph # (Auto) (1.2-3.4) K/uL [place] # (Auto) (0.11-0.59) K/uL Eos # (Auto) (0-0.5) K/uL Baso # (Auto) (0-0.2) K/uL Immature Gran # (Auto) (0.00-0.02) K/uL PT 10.3 (9.0-12.0) Seconds INR 1.0 (0.9-1.1) Sodium (136-145) mmol/L Potassium (3.5-5.1) mmol/L Chloride (98-107) mmol/L Carbon Dioxide (21-32) mmol/L Anion Gap (3-11) BUN (6-23) mg/dl Creatinine (0.6-1.2) mg/dl Est Cr Clr Drug Dosing ml/min Est GFR ( Amer) ml/min Est GFR (Non-Af Amer) ml/min BUN/Creatinine Ratio (10-20) Glucose (70-99(Fasting)) mg/dl Calcium (8.5-10.1) mg/dl Total Bilirubin (0.2-1.0) mg/dl AST (13-39) U/L ALT (7-52) U/L Alkaline Phosphatase (34-104) U/L Total Protein (6.0-8.3) gm/dl Albumin (3.4-5.0) gm/dl Globulin (2.5-4.0) gm/dl Albumin/Globulin Ratio (0.9-2) Lipase (11-82) U/L Urine Color Urine Appearance (Clear) Urine pH (4.5-7.5) Ur Specific [place] (1.000-1.030) Urine Protein (Negative) Urine Glucose (UA) (Negative) Urine Ketones (Negative) Urine Blood (Negative) Urine Nitrite (Negative) Urine Bilirubin (Negative) Urine Urobilinogen (Negative) Ur Leukocyte Esterase (Negative) Urine WBC (Auto) (0-5) /hpf Urine RBC (Auto) (0-4) /hpf U Hyaline Cast (Auto) (0-5) /lpf U Epithel Cells (Auto) (0-5) /lpf Urine Bacteria (Auto) (Negative) POC Ur Test NEG (NEG) SARS-CoV-2, RNA, NAAT NEGATIVE (NEGATIVE) 05/08/22 05/08/22 05/08/22 Range/Units 06:15 06:15 06:15 WBC 11.41 H (4.8-10.8) K/uL RBC 4.91 (4.2-5.4) M/uL Hgb 13.7 (12.0-16.0) g/dL Hct 40.8 (37-47) % MCV 83.1 (80-100) fL MCH 27.9 (25-34) pg MCHC 33.6 (32-36) g/dL RDW Std Deviation 41.2 (36.4-46.3) fL RDW Coeff of Hina 13.6 (11.5-14.5) % Plt Count 356 (130-400) K/uL MPV 9.6 (7.4-10.4) fL Immature Gran % (Auto) 0.6 % Neut % (Auto) 76.1 % Lymph % (Auto) 15.7 % [place] % (Auto) 6.4 % Eos % (Auto) 1.0 % Baso % (Auto) 0.2 % Neut # (Auto) 8.69 H (1.4-6.5) K/uL Lymph # (Auto) 1.79 (1.2-3.4) K/uL [place] # (Auto) 0.73 H (0.11-0.59) K/uL Eos # (Auto) 0.11 (0-0.5) K/uL Baso # (Auto) 0.02 (0-0.2) K/uL Immature Gran # (Auto) 0.07 H (0.00-0.02) K/uL PT (9.0-12.0) Seconds INR (0.9-1.1) Sodium 137 (136-145) mmol/L Potassium 4.0 (3.5-5.1) mmol/L Chloride 101 (98-107) mmol/L Carbon Dioxide 26 (21-32) mmol/L Anion Gap 10 (3-11) BUN 19 (6-23) mg/dl Creatinine 0.79 (0.6-1.2) mg/dl Est Cr Clr Drug Dosing 128.4 ml/min Est GFR ( Amer) 109.3 ml/min Est GFR (Non-Af Amer) 94.3 ml/min BUN/Creatinine Ratio 24.1 H (10-20) Glucose 132 H (70-99(Fasting)) mg/dl Calcium 9.2 (8.5-10.1) mg/dl Total Bilirubin 1.1 H (0.2-1.0) mg/dl AST 89 H (13-39) U/L ALT 94 H (7-52) U/L Alkaline Phosphatase 140 H (34-104) U/L Total Protein 7.8 (6.0-8.3) gm/dl Albumin 4.1 (3.4-5.0) gm/dl Globulin 3.7 (2.5-4.0) gm/dl Albumin/Globulin Ratio 1.1 (0.9-2) Lipase 2492 H (11-82) U/L Urine Color Dark Yellow Urine Appearance Turbid A (Clear) Urine pH 6.5 (4.5-7.5) Ur Specific [place] 1.024 (1.000-1.030) Urine Protein Negative (Negative) Urine Glucose (UA) Negative (Negative) Urine Ketones Trace H (Negative) Urine Blood Negative (Negative) Urine Nitrite Negative (Negative) Urine Bilirubin 1+ H (Negative) Urine Urobilinogen Positive H (Negative) Ur Leukocyte Esterase Negative (Negative) Urine WBC (Auto) 1-5 (0-5) /hpf Urine RBC (Auto) 0-4 (0-4) /hpf U Hyaline Cast (Auto) 0 (0-5) /lpf U Epithel Cells (Auto) >30 H (0-5) /lpf Urine Bacteria (Auto) 1+ H (Negative) POC Ur Test (NEG) SARS-CoV-2, RNA, NAAT (NEGATIVE) Diagnostic Findings US ABD: The visualized pancreas is unremarkable. The liver measures 18.9 cm in length. No hepatic mass identified. The intrahepatic biliary tree within the right hepatic lobe is slightly prominent. The common bile duct measures within the upper limits of normal at 6 mm. No choledocholithiasis identified. Distended gallbladder. The gallbladder wall measures the upper limits of normal at 3 mm. Layering cholelithiasis and gallbladder sludge. There is questioned trace pericholecystic fluid. Sonographic Hale sign was unable to be assessed secondary to patient recently receiving pain medication. The imaged right kidney is unremarkable. IMPRESSION: 1. Distended gallbladder with cholelithiasis and trace pericholecystic fluid. The gallbladder wall measures within the upper limits of normal. Findings are suspicious for acute cholecystitis. 2. The common bile duct measures within the upper limits of normal at 6 mm. Correlation with serum bilirubin recommended to exclude obstructive process. MRCP: Lower chest: No acute abnormality Liver: Unremarkable. No focal lesions are seen. Gallbladder and biliary tree: Mild pericholecystic edema is noted. Gallbladder wall appears minimally thickened. Common bile duct measures 5 mm in diameter, not enlarged. No filling defects are noted. Pancreas: Unremarkable, no focal lesions. Spleen: Unremarkable. Adrenals: Unremarkable. Kidneys and ureters: Unremarkable. Bowel: Unremarkable. Lymph nodes Retroperitoneal: Unremarkable. Mesenteric: Unremarkable. Peritoneum: Normal Vessels: Unremarkable. Abdominal wall: Unremarkable. Bones: Unremarkable. IMPRESSION: 1. No evidence of stone in the common bile duct. No pancreatic edema is clearly seen. 2. Redemonstration of cholelithiasis and pericholecystic edema/minimal gallbladder wall thickening, concerning for acute cholecystitis.
[2022-05-08] MEDS: INSULIN ASPART PER UNIT SC SCH ×3 (14:14→20:55)
[2022-05-08] MEDS: metroNIDAZOLE 500 MG/100 ML BAG IV SCH ×2 (15:09→19:58)
[2022-05-09] MEDS: CIPROFLOXACIN / D5W 400 MG/200 ML BAG IV SCH (00:15)
[2022-05-09] MEDS: LACTATED RINGER'S 1,000 ML IV SCH ×3 (01:41→08:52)
[2022-05-09] MEDS: metroNIDAZOLE 500 MG/100 ML BAG IV SCH (05:27)
[2022-05-09 07:33] LABS: Hematocrit (blood only) 34.7 % (37-47); Hemoglobin 11.4 g/dL (12.0-16.0); Mean Corpuscular Hemoglobin 27.5 pg (25-34); Mean Corpuscular Hgb Conc 32.9 g/dL (32-36); Mean Corpuscular Volume 83.8 fL (80-100); Mean Platelet Volume 9.5 fL (7.4-10.4); Platelet Count 315 K/uL (130-400); RDW Coefficient of Variation 13.9 % (11.5-14.5); RDW Standard Deviation 42.5 fL (36.4-46.3); Red Blood Count 4.14 M/uL (4.2-5.4); White Blood Count 7.68 K/uL (4.8-10.8)
[2022-05-09 07:57] LABS: Albumin Globulin Ratio 1.1 (0.9-2); Albumin Level 3.4 gm/dl (3.4-5.0); BUN Creatinine Ratio 12.9 (10-20); Bilirubin,Total 0.6 mg/dl (0.2-1.0); Calcium 8.3 mg/dl (8.5-10.1); Creatinine Clr Calc Pharmacy 144.9 ml/min; Est GFR (African American) 126.5 ml/min; Est GFR (Non-African American) 109.1 ml/min; Potassium 3.9 mmol/L (3.5-5.1); Total Protein 6.4 gm/dl (6.0-8.3)
[2022-05-09] MEDS: INSULIN ASPART PER UNIT SC SCH ×2 (08:51→12:48)
[2022-05-09] MEDS ORDERED: SERTRALINE HCL 50 MG TABLET PO SCH (09:00)
--- NOTE | 2022-05-09 12:34 | Discharge Summary ---
Date of Service May 09, 2022 Principal Diagnosis gallstone pancreatitis elevated transaminitis Discharge Exam CONSTITUTIONAL: obese, vitals as above, generally well-appearing EYES: normal conjunctivae, no scleral icterus, ENT: external ear and nose normal, MMM NECK: trachea midline, RESPIRATORY: clear to auscultation bilaterally, no crackles, rales or wheezes, normal respiratory effort CARDIOVASCULAR: regular rate and rhythm, S1 and 2 heard without murmurs, gallops or rubs, no JVD, no peripheral edema, CHEST: inspection of chest was normal GASTROINTESTINAL: soft, nontender, ND, no guarding MUSCULOSKELETAL: strength 5/5 throughout, head is normocephalic and atraumatic SKIN: warm and dry NEUROLOGIC: CN 2-12 grossly intact, no sensory deficit, normal cognition, normal speech, no tremor PSYCHIATRIC: alert cooperative and oriented to person, place and time. Discharge Data Allergies Allergy/AdvReac Type Severity Reaction Status Date / Time No Known Allergies Allergy Unverified 03/02/16 10:45 Consultations 05/08/22 08:32 ED Decision to Admit Stat 05/08/22 09:25 Consult Gastroenterology Routine Consult General Surgery Routine Ordered Studies 05/08/22 06:02 US gallbladder Stat 05/08/22 10:09 MR MRCP Stat Hospital Course (1) Gallstone pancreatitis: Admitted after severee pain prior to arrival-RUQ radiating to shoulder blade. Initial workup revealed WBC of 11.4K, total bilirubin of 1.1, AST of 89, ALT of 94, alkaline phosphatase of 140, lipase of 2492. Gallbladder ultrasound notable for distended gallbladder with cholelithiasis with trace pericholecystic fluid CBD limits of normal at 6 mm. Pancreatitis likely 2/2 gall stones. No fevers or chills but was placed on antibiotics. Also given aggressive intravenous fluids overnight. Seen by general surgery who decided to discharge patient home and perform cholecystectomy as outpatient. She was discharged in stable condition. (2) Elevated transaminase level: Total Time Total Time Spent Total Time Spent (In Minutes): 60 Discharge Plan Discharge Items Patient Disposition: Home - Self-Care Reason For Visit: PANCREATITIS Discharge Diagnosis: gallstone pancreatitis Condition on Discharge: Good Activity: Resume your previous activity Non-emergency contact: Primary Care Provider Call non-emergency contact if: you have any medication questions, your symptoms worsen, your pain is not controlled, your pain is worsening, your pain is unusual for you, your pain is concerning for you and you have a fever Follow-up/Referrals: Jean Claude Mims MD [Physician] - (Will need office visit end of next week) Allen Decker MD [Primary Care Provider] - Diet: Low Fat Addtl Attending Provider Instructions: Please followup with general surgery as outlined below. It is recommended that you follow-up with your primary care physician in 1-2 weeks to ensure you are still doing well after returning home, ensure you have surgical care set up without any issues and to monitor your liver function tests which were mildly elevated in the hospital. It was a pleasure taking care of you! Please call if you have any questions or problems. You can reach a [facility] hospitalist on duty at [facility] 24 hours a day by calling [phone]. Take care of yourself. Joie Patterson DO [facility] [employer]tl [employer] Provider Instructions: General Surgery recommendations: - Recommend close outpatient surgery for removal of your gallbladder given this episode of acute pancreatitis (inflammation of your pancreas secondary to gallstones) - Will get you scheduled for outpatient surgery - Recommend low fat/bland diet until your surgery to prevent recurrence of pain or similar episode. (Avoid fatty, greasy, fried foods) - I will have our office contact you to get an appointment scheduled with Dr. Mims end of next week to schedule your outpatient gallbladder surgery - Please call office at [phone] if you have any questions/concerns Pending Studies at Discharge: No Stand-Alone Forms: My [facility] Medications and DC Order Prescriptions: Continued norethindrone ac-eth estradiol [ (21)] 1.5-30 mg-mcg tablet 1 tab PO DAILY RF: 0 sertraline 50 mg tablet 50 mg PO DAILY RF: 0 metformin 1,000 mg tablet 1,000 mg PO BID RF: 0 Discharge Orders: Discharge Order (Routine); Ordered 05/09/22 Ordered By: Joie Hernandez/Other Patient Handouts: Pancreatitis Acute Dc Admission Data Admit Date/Time: 05/08/22 09:22 Attending Provider: Joie Patterson Admit Provider: Lali Espinoza I. Primary Care Provider: Allen Decker Other Providers: Monisha Benson ; Jean Claude Mims ; Lali Espinoza I. Other Interventions: Discharge Summary Assessment (RN) Last Done: 05/09/22 12:41
== END 2022-05-09 13:05 | disposition home or self-care (01) ==
LOC: EDINP 05:28 → ED 05:28 → SUATTDRO 09:22 → 3W 12:46